=== PATIENT | female | born 1980 | race African-American/Black ===

== ENCOUNTER 2021-12-20 02:27 | Emergency (ER) | payer BC ==
[~2021-12-20] VITALS: Ht 170.2 cm; Wt 78.1 kg
[2021-12-20 02:34] VITALS: BP 126/65
[2021-12-20] MEDS ORDERED: SODIUM CHLORIDE 0.9% 1,000 ML IV ONE (03:30)
[2021-12-20] MEDS ORDERED: ONDANSETRON HCL 4MG/2ML INJ IV ONE (03:30)
[2021-12-20 03:47] LABS: HEMATOCRIT 34.8 % (36.0-48.0); HEMOGLOBIN 11.6 g/dL (12.0-16.0); MEAN CORPUSCULAR HEMOGLOBIN 27.7 pg (28.0-32.0); MEAN CORPUSCULAR VOLUME 82.8 fL (81.0-99.0); PLATELET 286 x1000/uL (130-400); RED CELL DISTRIBUTION WIDTH 16.1 % (11.6-14.6)
[2021-12-20 03:54] LABS: CHLORIDE 109 mEq/L (98-107)
== END 2021-12-20 04:51 | disposition home or self-care (01) ==
LOC: ER 02:27
DX: K52.9 Noninfective gastroenteritis and colitis, unspecified (principal)
CPT/HCPCS: 36415; 80053; 81025; 85027; 96361; 96374; 99283; J2405; J7030